=== PATIENT | female | born 1955 | race Caucasian/White ===

== ENCOUNTER 2020-02-17 13:04 | Inpatient (IN) | payer OTHER ==
[~2020-02-17] VITALS: Ht 172.7 cm; Wt 91.0 kg
[2020-02-17 13:06] VITALS: BP 157/65
[2020-02-17] MEDS ORDERED: ZOLOFT100 MG PO (13:11)
[2020-02-17] MEDS ORDERED: ACCURETIC 10-11 EACH PO (13:11)
[2020-02-17] MEDS ORDERED: METFORMIN HCL500 MG PO (13:11)
[2020-02-17] MEDS ORDERED: GLIPIZIDE XL2.5 MG PO (13:11)
[2020-02-17] MEDS ORDERED: ZOCOR20 MG PO (13:11)
[2020-02-17] MEDS ORDERED: LEVOXYL75 MCG PO (13:12)
[2020-02-17] MEDS ORDERED: VESICARE10 M1 PO (13:12)
[2020-02-17 13:40] LABS: HEMATOCRIT 36.6 % (37.0-47.0); HEMOGLOBIN 12.3 gm/dL (12.0-15.0); MCH 30.1 pg (26.0-34.0); MCHC 33.5 g/dL (28.0-37.0); MCV 89.7 fL (80.0-100.0); MPV 8.9 fl. (7.2-11.1); NUCLEATED RBCS 0 /100WBC; PLATELET COUNT* 347 thou/uL (150-400); RBC 4.09 mil/uL (4.20-5.00); RDW-CV 12.8 % (10.5-14.5); WBC 11.9 thou/uL (4.0-11.0)
[2020-02-17 13:50] LABS: CALCIUM 8.2 mg/dL (8.5-10.1); CREATININE 7.4 mg/dL (0.6-1.3); POTASSIUM 4.2 mmol/L (3.5-5.1)
[2020-02-17 13:54] LABS: TOTAL BILIRUBIN 0.2 mg/dL (<0.1-1.0)
[2020-02-17 14:17] LABS: ABSOLUTE LYMPHOCYTES 1.1 thou/uL (0.8-5.3); ABSOLUTE MONOCYTES 0.1 thou/uL (0.0-1.2); ABSOLUTE NEUTROPHILS 10.7 thou/uL (1.6-8.1); PLATELET ESTIMATE ADEQUATE
[2020-02-17 14:53] LABS: URINE BLOOD 3+ (Negative); URINE CLARITY TURBID; URINE COLOR BROWN; URINE GLUCOSE-RANDOM NEGATIVE (Negative); URINE KETONES NEGATIVE (Negative); URINE PROTEIN 3+ (Negative); URINE UROBILINOGEN 0.2 E.U./dl (0.2-1.0)
[2020-02-17 14:55] LABS: ICTOTEST (BILI CONFIRMATORY) Negative (Negative); URINE BILIRUBIN 1+ (Negative); URINE LEUKOCYTES-REFLEX 2+ (Negative); URINE NITRITE-REFLEX POSITIVE (Negative)
[2020-02-17 14:58] LABS: SQUAMOUS NONE SEEN /LPF (0-3); URINE WBC-REFLEX >25 Many /HPF (0-5); WBC CLUMPS Many (None Seen)
[2020-02-17 14:59] LABS: URINE RBC >20 Many /HPF (0-2)
[2020-02-17 15:00] LABS: BACTERIA-REFLEX >30 Many /HPF (None Seen); CASTS None Seen /LPF (None Seen); CRYSTALS None Seen /LPF (None Seen); MUCUS None Seen strn/LPF (None Seen)
--- NOTE | 2020-02-17 15:58 | NUR ---
NEEDLE PUNCH MACHINE OPERATOR HELPER CALLED RE: ORDERS FOR TOMORROW. ADVISING FOR PT TO NPO AFTER MIDNIGHT TONIGHT. THIS NURSE VERBALIZED UNDERSTANDING
[2020-02-17 17:11] VITALS: BP 116/85
[2020-02-17 17:30] VITALS: BP 139/62
--- NOTE | 2020-02-17 18:11 | NUR ---
PATIENT ADMITTED TO ROOM 204. STAYING THE NIGHT, LEFT TO GO HOME AND EAT AND CHANGE AND WILL BE BACK. PATIENT SEVERELY DEMENTED. UNABLE TO ANSWER ANY ADMISSION QUESTIONS AT THIS TIME. CONTINUALLY REPEATS WHAT STAFF ASKS OR SPEAKS TO PATIENT. BED IN LOWEST POSITION, CALL LIGHT IN REACH, STAFFING CONSULTANT IN PLACE, HIGH FALL PRECAUTIONS IN PLACE.
[2020-02-17] MEDS ORDERED: NEXIUM 24HR20 M1 PO (18:52)
[2020-02-17] MEDS ORDERED: NAMENDA 10 MG T10 MG PO (18:53)
[2020-02-17 19:55] VITALS: BP 102/44
[2020-02-17] MEDS ORDERED: ACCURETIC 20-11 EACH PO (21:07)
[2020-02-18] VITALS: BP 139/83
--- NOTE | 2020-02-18 01:12 | NUR ---
ASSUMED CARE OF PT AT 1900. PT IS CONFUSED. PTS IS STAYING WITH PT AND HAS BEEN VERY HELPFUL WITH HER CARE. PRISCA. VSS. NO COMPLAINTS OF PAIN. PTS BLOOD SUGAR WAS 31. PT WAS GIVEN D 50. PTS BLOOD SUGAR IS BEING CHECKED EVERY FEW HOURS. PT IS IN SINUS RYTHM ON THE TELEMETRY. PT IS RESTING COMFORTABLY IN BED. RESPIRATIONS ARE EVEN AND NONLABORED. WILL CONTINUE TO MONITOR PT.
[2020-02-18 04:00] VITALS: BP 157/73
[2020-02-18 04:27] LABS: HEMATOCRIT 35.4 % (37.0-47.0); MCHC 33.8 g/dL (28.0-37.0); MCV 88.8 fL (80.0-100.0); MPV 9.7 fl. (7.2-11.1); RBC 3.99 mil/uL (4.20-5.00); WBC 10.5 thou/uL (4.0-11.0)
[2020-02-18 04:36] LABS: CALCIUM 8.5 mg/dL (8.5-10.1); CREATININE 8.1 mg/dL (0.6-1.3); MAGNESIUM 1.4 mg/dL (1.8-2.4)
[2020-02-18 07:35] VITALS: BP 117/61
[2020-02-18 12:17] LABS: URINE POTASSIUM-RANDOM 16.2 mmol/L
[2020-02-18 16:52] VITALS: BP 137/76
--- NOTE | 2020-02-18 17:46 | NUR ---
PATIENT SUGARS CONTINUE TO DROP TO THE 30S AND LOWERS. NOTIFIED DR WALTON. ORDERS TO CONTINUE GIVEN D50 PUSHS AND JUICE, SHOULD RESOLVE EVENTUALLY. CONTINUES ON D10 GTT PER EMAR. UPDATED ON PLAN OF CARE. PATIENT HAS NOT HAD ANY MORE NAUSEA EPISODES SINCE THIS AFTERNOON. TOLERATED DINNER. CATHETER PLACED TODAY AND VERY MINIMAL OUTPUT NOTED, URINE SAMPLE SENT. BED IN LOWEST POSITION, CALL LIGHT IN REACH, DISTRICT PLANT SUPERINTENDENT IN PLACE, HIGH FALL PRECAUTIONS IN PLACE, AT BEDSIDE.
[2020-02-18 20:00] VITALS: BP 126/67
[2020-02-19] VITALS: BP 136/76
[2020-02-19 02:07] LABS: HEPATITIS B SURFACE AG Negative (Negative)
[2020-02-19 04:38] LABS: HEMATOCRIT 34.7 % (37.0-47.0); HEMOGLOBIN 11.8 gm/dL (12.0-15.0); MCH 29.9 pg (26.0-34.0); MCHC 34.1 g/dL (28.0-37.0); MCV 87.9 fL (80.0-100.0); MPV 9.5 fl. (7.2-11.1); RBC 3.95 mil/uL (4.20-5.00); RDW-CV 12.8 % (10.5-14.5); WBC 9.6 thou/uL (4.0-11.0)
[2020-02-19 05:03] LABS: ALBUMIN 2.3 g/dL (3.4-5.0); CALCIUM 7.4 mg/dL (8.5-10.1); CREATININE 8.9 mg/dL (0.6-1.3); MAGNESIUM 1.3 mg/dL (1.8-2.4); POTASSIUM 4.1 mmol/L (3.5-5.1); TOTAL BILIRUBIN 0.2 mg/dL (<0.1-1.0); TOTAL PROTEIN 5.7 g/dL (6.4-8.2)
[2020-02-19 07:08] LABS: GLYCOHEMOGLOBIN (HGB A1C) 6.3 % (4.8-5.6)
--- NOTE | 2020-02-19 07:26 | NUR ---
Shift uneventful. Pt disoriented x4, M/S status, respirations are even and unlabored on room air. Pt is medically stable at this time.
[2020-02-19 07:40] VITALS: BP 153/77
[2020-02-19] MEDS ORDERED: MYRBETRIQ25 MG PO (08:12)
[2020-02-19 11:01] VITALS: BP 153/77
--- NOTE | 2020-02-19 16:21 | NUR ---
IN DIALYSIS AT THIS TIME
--- NOTE | 2020-02-19 17:02 | EKG ---
[place] [address] ELECTROCARDIOGRAM REPORT Name: DELGADOHIGINIO Room: [address] ADM IN M.R.#: [id number] Admission: 02/17/20 Attend Phys: Aldo Vaz, Discharge: Date of : 57 Date of Service: 02/17/20 1314 Report #: [id number] THIS REPORT FOR: //name// [facility] ED Test Date: 2020-02-17 Test Time: 13:14:47 Pat Name: HIGINIO DELGADO Department: Room: [address] Gender: F Loading Unit Operator: : [id number] Requested By: Gianna Hi Order Number: [id number] Jonn MD: Feng Quiñonez Measurements Intervals [place] Rate: 74 P: 70 ID: 180 QRS: -21 QRSD: 102 T: 50 QT: 408 QTc: 453 Interpretive Statements Sinus rhythm Atrial premature complex Borderline left axis deviation Low voltage, extremity and precordial leads No previous ECG available for comparison Electronically Signed On 02-19-2020 17:00:15 CDT by Feng Quiñonez [email or web address] <ELECTRONICALLY SIGNED> By: Feng Quiñonez MD, FACC 02/19/20 1700 1314 1314 Feng Quiñonez MD, [facility] /EPI
--- NOTE | 2020-02-19 18:16 | NUR ---
PATIENT STILL IN DIALYSIS AT THIS TIME. SOMEWHAT PROGRESSING TOWARDS GOALS. OBTAINED DIALYSIS LINE AND DIALYSIS TODAY. DID VOMIT X2 WITH BREAKFAST AND LUNCH. ZOFRAN GIVEN FOR LUNCH. MITTS IN PLACE TO KEEP PATIENT FROM PULLING OUT TEMP DIALYSIS LINE, ALSO AT BEDSIDE. SUGARS REMAIN NORMAL THIS SHIFT, TAKING ACHS.
[2020-02-19 20:00] VITALS: BP 122/68
[2020-02-19 23:41] VITALS: BP 124/75
[2020-02-20 06:48] LABS: ABSOLUTE BASOPHILS 0.1 thou/uL (0.0-0.2); ABSOLUTE EOSINOPHILS 0.1 thou/uL (0.0-0.7); ABSOLUTE LYMPHOCYTES 1.3 thou/uL (0.8-5.3); ABSOLUTE MONOCYTES 0.9 thou/uL (0.0-1.2); ABSOLUTE NEUTROPHILS 5.9 thou/uL (1.6-8.1); BASOPHILS 0.6 %; EOSINOPHILS 1.8 %; HEMATOCRIT 33.3 % (37.0-47.0); HEMOGLOBIN 11.5 gm/dL (12.0-15.0); LYMPHOCYTES 15.5 %; MCH 30.1 pg (26.0-34.0); MCHC 34.5 g/dL (28.0-37.0); MCV 87.4 fL (80.0-100.0); MONOCYTES 11.2 %; MPV 9.3 fl. (7.2-11.1); NUCLEATED RBCS 0 /100WBC; PLATELET COUNT* 249 thou/uL (150-400); POLYS 70.9 %; RBC 3.81 mil/uL (4.20-5.00); RDW-CV 12.6 % (10.5-14.5); WBC 8.3 thou/uL (4.0-11.0)
[2020-02-20 06:53] LABS: CALCIUM 7.9 mg/dL (8.5-10.1); MAGNESIUM 2.9 mg/dL (1.8-2.4); POTASSIUM 4.4 mmol/L (3.5-5.1)
[2020-02-20 06:54] LABS: CREATININE 6.6 mg/dL (0.6-1.3)
--- NOTE | 2020-02-20 06:55 | NUR ---
Pt hyperglycemic at 2000 with POC glucose of 186 on D10 w/ NS at 80 ml/hr. At [address] POC glucose was 276. Dr. Leon was paged and D10 w/ NS was decreased to 30 ml/hr. At 0400 POC glucose was 200. Shift otherwise uneventful. Pt is aox0 (pt baseline), M/S status, respirations are even and unlabored. Pt is medically stable at this time.
--- NOTE | 2020-02-20 09:15 | NUR ---
PT OFF UNIT TO U/S, MRI.
--- NOTE | 2020-02-20 09:47 | NUR ---
PT WILL BE [id number] AFTER DIALYSIS TO [facility] PER CASE MNAGEMENT.
--- NOTE | 2020-02-20 09:49 | NUR ---
PER INSURNACE, PT.IS OUT OF NETWORK FOR INSURANCE WITH NO OUT OF NETWORK BENEFITS. IN NETWORK FACILITIES ARE ANY [facility]. CM CALLED PTS ,ELISE IN PTS ROOM. EXPLAINED ABOVE. HE CHOSE [facility] IT IS CLO[place]ST TO [place]. NOTIFIED. CALL TO [facility] ACCESS TRANFER TEAM TO INITIATE TRANSFER. FAXED [facility],H&P, RENAL AND IM PROGRESS NOTE FROM 02/18 TO [phone]. THEY WILL REVIEW. IF ABLE TO ACCEPT WILL PUT THEIR ADMITTING DRMarionIN CONTACT WITH . GINA OLIVARES AWARE OF POTENTIAL TRANSFER.
--- NOTE | 2020-02-20 11:35 | CON ---
[address] [address] CONSULTATION Name: DANNYHIGINIO Room: [address] IN M.R.#: [id number] Admission: 02/17/20 Attend Phys: Aldo Vaz MD Discharge: Date of : 57 Report #: [id number] THIS REPORT FOR: //name// cc: Luke Daugherty John E. DO ~ THIS REPORT FOR: //name// CC: SABINO physician/PCP Aldo Vaz DATE OF SERVICE: 02/18/2020 REQUESTING PHYSICIAN: Dr. Aldo Vaz. REASON FOR CONSULTATION: Acute kidney injury. HISTORY OF PRESENT ILLNESS: The patient is a 64-year-old female with advanced dementia, history of diabetes mellitus type 2 and hypertension. She presents with low blood sugar, she became unresponsive and Emergency Room doctor was evaluating her for unresponsiveness. She was also found that she was in acute kidney injury. Her creatinine was 7.4 yesterday, 8.1 today. Potassium 4.0, sodium 135, hemoglobin 12.0. Urine showed presence of protein, blood, leukocyte esterase and bacteria. It is not known at least to me and to her whether or not she had kidney disease due to diabetes. The patient developed dementia about 10 years ago and now she is totally under care of her . FAMILY HISTORY: Negative for dementia or renal disease. SOCIAL HISTORY: Does not smoke, does not drink. She used to work as a police clerk. REVIEW OF SYSTEMS: Unobtainable and unreliable due to her advanced dementia. PHYSICAL EXAMINATION: GENERAL: She is awake, but totally disoriented. In no acute distress. VITAL SIGNS: Blood pressure 150/70, heart rate 76, afebrile. HEENT: Pupils are round. NECK: Supple. LUNGS: Clear. CARDIOVASCULAR: Regular rate. ABDOMEN: Soft. LOWER EXTREMITIES: No edema. LABORATORY REPORT: [place] [address] CONSULTATION Name: HIGINIO DELGADO Room: [address] IN [facility]#: [id number] Admission: 02/17/20 Attend Phys: Aldo Vaz MD Discharge: Date of : 57 Report #: [id number] ASSESSMENT: 1. Acute kidney injury on top of the possible chronic kidney disease. Again, it is not known whether she has chronic kidney disease. I am not sure why she developed acute kidney injury. 2. Diabetes mellitus type 2. 3. Hypertension. 4. Advanced dementia. PLAN: 1. Obtain serologies. 2. Obtain renal ultrasound. 3. Hydrate her. 4. Place [place]. 5. Follow her labs. It is very possible that she may require dialysis. <ELECTRONICALLY SIGNED> By: Elvis Castillo MD 02/20/20 1135 1055 [id number] ana Rodrigues
[2020-02-20 12:27] VITALS: BP 106/65
--- NOTE | 2020-02-20 12:42 | NUR ---
PT OFF UNIT TO DIALYSIS.
--- NOTE | 2020-02-20 13:44 | NUR ---
REPORT CALLED TO FABRIZIO FUENTES AT [facility].
--- NOTE | 2020-02-20 16:15 | NUR ---
[facility] RETURNED TO .
--- NOTE | 2020-02-20 16:26 | NUR ---
PT RETURN FROM DIALYSIS.
[2020-02-20 17:10] VITALS: BP 142/76
--- NOTE | 2020-02-20 17:25 | NUR ---
PT TAKEN TO [facility].
[2020-02-21 10:08] LABS: GLOMERULR BASEM MEMBRN AB 2 units (0-20)
[2020-02-21 11:08] LABS: ANA INTERPRETATION Negative (Negative)
[2020-02-21 16:08] LABS: URINE PROTEIN (MG/DL) 49.9 mg/dL (Not Estab.)
[2020-02-22 13:09] LABS: GLOBULIN TOTAL 2.7 g/dL (2.2-3.9); M-SPIKE Not Observed g/dL (Not Observed)
== END 2020-02-20 17:29 | disposition short-term general hospital (02) | DRG 637 ==
LOC: M.ERS 13:04 → M.2W 15:07 → M.TBA-ER 15:07 → M.2W 17:26
PROVIDERS: Internal Medicine; Internal Medicine Nephrology; Personal Emergency Response Attendant; ADMIT Internal Medicine
DX: E11.649 Type 2 diabetes mellitus with hypoglycemia without coma (principal); G93.41 Metabolic encephalopathy; R65.10 Systemic inflammatory response syndrome (SIRS) of non-infectious origin without acute organ dysfunction; N30.01 Acute cystitis with hematuria; R47.01 Aphasia; N17.0 Acute kidney failure with tubular necrosis; E03.9 Hypothyroidism, unspecified; F32.9 Major depressive disorder, single episode, unspecified; E78.00 Pure hypercholesterolemia, unspecified; F03.90 Unspecified dementia, unspecified severity, without behavioral disturbance, psychotic disturbance, mood disturbance, and anxiety; I10 Essential (primary) hypertension; T50.905A Adverse effect of unspecified drugs, medicaments and biological substances, initial encounter; Z90.710 Acquired absence of both cervix and uterus; Z79.84 Long term (current) use of oral hypoglycemic drugs; Y92.89 Other specified places as the place of occurrence of the external cause